=== PATIENT | male | born 1975 | race Hispanic/Latino ===

== ENCOUNTER 2025-02-06 09:35 | Emergency (ER) | payer OTHER ==
[~2025-02-06] VITALS: Ht 172.7 cm; Wt 86.2 kg
[~2025-02-06 09:35] MED LIST: NAPROXEN250 MG PO
[2025-02-06 09:40] VITALS: TEMP 98
[2025-02-06] MEDS: IBUPROFEN 600 MG TAB PO STA (09:50)
[2025-02-06 11:45] VITALS: PULSE 86; RESP 16; O2SAT 100
== END 2025-02-06 11:48 | disposition home or self-care (01) ==
LOC: ER 09:41
DX: S99.821A Other specified injuries of right foot, initial encounter (principal); M54.50 Low back pain, unspecified; W01.0XXA Fall on same level from slipping, tripping and stumbling without subsequent striking against object, initial encounter; Y93.01 Activity, walking, marching and hiking; Y92.89 Other specified places as the place of occurrence of the external cause
CPT/HCPCS: 72100; 99283